=== PATIENT | female | born 1980 | race Caucasian/White ===

== ENCOUNTER 2016-11-08 01:09 | Outpatient (CLI) | payer MEDICAID, OTHER ==
[~2016-11-08] VITALS: Ht 167.6 cm; Wt 88.3 kg
[~2016-11-08 01:09] MED LIST: PRENAT PO
[2016-11-08 02:42] LABS: ADD UMIC YES; UR ASCORBIC ACID NEGATIVE (NEGATIVE); UR BACTERIA FEW /HPF (NONE SEEN); UR BILIRUBIN (Dip) NEGATIVE (NEGATIVE); UR BLOOD (Dip) NEGATIVE (NEGATIVE); UR CLARITY SLIGHTLY CLOUDY (CLEAR); UR COLOR YELLOW (YELLOW); UR GLUCOSE (Dip) NEGATIVE (NEGATIVE); UR KETONES (Dip) 1+ mg/dL (NEGATIVE); UR LEUKOCYTE ESTERASE (Dip) NEGATIVE Leu/ul (NEGATIVE); UR MUCUS MODERATE /HPF (NONE SEEN); UR NITRITE (Dip) NEGATIVE (NEGATIVE); UR RBC 1 /HPF (0-5); UR SPECIFIC GRAVITY (Dip) 1.029 (1.003-1.030); UR SQUAMOUS EPITHELIAL CELL FEW /HPF (FEW); UR TOTAL PROTEIN (Dip) 1+ mg/dl (NEGATIVE); UR UROBILINOGEN (Dip) NEGATIVE (NEGATIVE)
[2016-11-08 02:54] VITALS: BP 130/60; PULSE 87; Ht 167.6 cm; Wt 88.3 kg
--- NOTE | 2016-11-08 03:16 | RADRPT ---
PROCEDURE: ULTRASOUND BIOPHYSICAL PROFILE CLINICAL INDICATION: 36-year-old female with contractions for viability. TECHNIQUE: Multiple sonographic images were obtained in order to perform a biophysical profile The images were reviewed on a PACS workstation. COMPARISON: None. FINDINGS: The cervix is closed with a length of 3.3 cm. There is a single viable intrauterine gestation. Ther e is a vertex presentation. Cardiac activity is present at 121 beats per minute. The placenta is p osterior and low-lying. The results of the biophysical profile are as follows: breathing movement = 2/2 Gross body movement = 2/2 tone = 2/2 Qualitative amniotic fluid volume = 2/2 Amniotic fluid index equals 11.1 cm. This yields a biophysical profile score of 8/8. IMPRESSION: 1. Biophysical profile score is 8/8. 2. Posterior low-lying placenta. 3. The cervix has a length of 3.3 cm. .Sridhar Menchaca MD, MD Date Time Electronically viewed and signed by .Sridhar Menchaca MD, on 11/08/2016 03:16 .Carlos/
[2016-11-08] MEDS ORDERED: NIFEdipine 10 MG CAP PO STA (03:55)
--- NOTE | 2016-11-08 05:53 | PN ---
Triage Information Date/Time November 08, 2016 Weeks of Gestation 28w 4d : 7 Para: 4 Diabetes: none Additional information C/O pelvic pressure x 4 days which increased a lot today. No bleeding or leaking. No recent intercourse. PMHx: none. POBHx: x 4. PSHx: none. NKDA. Objective Vital Signs Date Time Temp Pulse Resp B/P Pulse Ox O2 Delivery O2 Flow Rate FiO2 11/08/16 02:54 98.0 87 130/60 Heart Rate: 120's Heart Rate Comments Accels to 150 bpm. No decels. Contractions: None (No contractions were ever seen but oral hydration didn't seem to make a difference whereby one dose of Procardia made the pain go away completely.) Exam CX: thick/FT/-1 Results/Medications Results 24 hrs Laboratory Tests Test 11/08/16 02:00 Urine Color YELLOW Urine Clarity SLIGHTLY CLOUDY A Urine pH 6.0 Urine Specific [place] 1.029 Urine Ketones 1+ H Urine Nitrite NEGATIVE Urine Bilirubin NEGATIVE Urine Urobilinogen NEGATIVE Urine Leukocyte Esterase NEGATIVE Urine Microscopic RBC 1 Urine Microscopic WBC 2 Urine Squamous Epithelial Cells FEW Urine Bacteria FEW A Urine Mucus MODERATE Urine Hemoglobin NEGATIVE Urine Glucose NEGATIVE Urine Total Protein 1+ H Assessment/Plan A: IUP at 28w 4d. False labor. P: D/C home. PTL precautions reviewed and pt encouraged to rest, stay cool and hydrate well. FELIPA QUINONES MD Nov 08, 2016 05:53
--- NOTE | 2016-11-08 06:01 | TRIAGE ---
OB Triage Datetime Report Generated by CPN: 11/08/2016 06:00 Datetime: 11/08/2016 05:37 Stage of : OB Triage Labor Evaluation Frequency: 0 Monitor Mode: External Resting Tone Maili: Relaxed Heart Rate FHR Baseline Rate: 120 Monitor Mode: External US FHR Baseline Changes: No Baseline Change Variability: Moderate 6-25 bpm Accelerations: 15X15 Decelerations: None Category: Category I Datetime: 11/08/2016 05:12 Stage of : OB Triage Datetime: 11/08/2016 05:00 Stage of : OB Triage Labor Evaluation Frequency: 0 Monitor Mode: External Resting Tone Maili: Relaxed Contraction Comments: Pt denies feeling any ucs, cramping. Abdomen remains soft to palpation. Heart Rate FHR Baseline Rate: 120 Monitor Mode: External US FHR Baseline Changes: No Baseline Change Variability: Moderate 6-25 bpm Accelerations: 15X15 Decelerations: None Category: Category I Datetime: 11/08/2016 04:00 Stage of : OB Triage Labor Evaluation Frequency: x2 Monitor Mode: External Duration (sec)2399: 40 Quality: Mild Resting Tone Maili: Relaxed Heart Rate FHR Baseline Rate: 120 Monitor Mode: External US FHR Baseline Changes: No Baseline Change Variability: Moderate 6-25 bpm Accelerations: 15X15 Decelerations: None Category: Category I Pain Assessment Pain Scale: 2 Pain Presence: Intermittent Pain Type: Cramping Pain Location: Abdomen Pain Relief Measures: Comfort Measures Datetime: 11/08/2016 03:57 Stage of : OB Triage Datetime: 11/08/2016 03:00 Labor Evaluation Frequency: 0 Monitor Mode: External Resting Tone Maili: Relaxed Heart Rate FHR Baseline Rate: 115 Variability: Moderate 6-25 bpm Accelerations: 15X15 Decelerations: None Datetime: 11/08/2016 02:58 Monitor Mode: Palpation Resting Tone Maili: Relaxed Datetime: 11/08/2016 02:00 Labor Evaluation Frequency: NONE Monitor Mode: External Pattern: Normal: <= 5 Contractions in 10 Minutes Contraction Comments: NO UC'S SEEN OR PREVIOUSLY PALPATED, ONLY SPIKES ON TOCO FROM PATIENT JOSE ROBERTOI NG DOWN Heart Rate FHR Baseline Rate: 125 Monitor Mode: External US FHR Baseline Changes: No Baseline Change Variability: Moderate 6-25 bpm Accelerations: 10X10 Datetime: 11/08/2016 01:21 EGA: 28.4 Datetime: 11/08/2016 01:19 Vaginal Exam Dilatation (cms): 0.5 Effacement (%): 30 Station: -1 Exam By: [email or web address] rn Vaginal Bleeding: None Cervix, Consistency: Firm Cervix, Position: Posterior Datetime: 11/08/2016 01:16 Stage of : OB Triage Datetime: 11/08/2016 01:15 Monitor Mode: Palpation Resting Tone Maili: Relaxed Contraction Comments: pt. is pushing, states there is pressure present Datetime: 11/08/2016 01:03 Assessment Type: Triage Time of Arrival: 11/08/2016 01:03 Arrived By: Wheelchair Arrived From: Home Chief Complaint: PRESSURE [id number] Movement: Present Contractions: Denies/Absent Rupture of Membranes: Denies Vaginal Bleeding: None Vaginal Discharge: Denies Recent Sexual Intercouse: Denies Abdominal Trauma: Not Applicable Patient Complaints: Other Time Provider Notified: 11/08/2016 01:15 Provider Notified: REICHE Initial Plan: EFM, SVE, CALL OB, UA, CL, BPP Maternal Assessment Level of Consciousness: Fully Conscious Headache: Denies Blurred Vision: No Respiratory Effort: Unlabored; Regular Rhythm; Equal Expansion Breath Sounds, Left: Clear and Equal Breath Sounds, Right: Clear and Equal Nausea/Vomiting: Denies RUQ Epigastric Pain: Denies Lower Extremities Edema: None Degree: None Upper Extremities Edema: None Degree: None Facial Edema: None Fall Risk Assessment History of Falling: (0) No Secondary Diagnosis: (0) No Ambulatory Aid: (0) Bedrest/Nurse Assist IV Therapy: (0) No Gait: (0) Normal/Bedrest/Immobile Mental Status: (0) Oriented to Own Ability Fall Score: 0 Fall Risk Score Definition: No Risk: No action required
== END 2016-11-08 05:50 | disposition home or self-care (01) ==
LOC: OBT 01:09 → L-D 01:10 → OBT 05:50
PROVIDERS: ATTEND Obstetrics & Gynecology
DX: O47.02 False labor before 37 completed weeks of gestation, second trimester (principal); O09.522 Supervision of elderly multigravida, second trimester; Z3A.28 28 weeks gestation of pregnancy
CPT/HCPCS: 76817; 76818; 81001; Z7500; Z7610; G0463

== ENCOUNTER 2017-01-27 06:55 | Inpatient (IN) | payer OTHER ==
[~2017-01-27] VITALS: Ht 167.6 cm; Wt 90.3 kg
[2017-01-27 11:58] VITALS: Ht 167.6 cm; Wt 90.3 kg
[2017-01-27 11:59] VITALS: BP 126/64; PULSE 73; RESP 18
[2017-01-27] MEDS ORDERED: METHYLERGONOVINE 0.2 MG INJ IM PRN ×2 (12:00→22:00)
[2017-01-27] MEDS ORDERED: OXYTOCIN 30 UNITS/LR 500 ML IV SCH ×3 (12:00→16:30)
[2017-01-27] MEDS ORDERED: CARBOPROST 250 MCG INJ IM PRN ×2 (12:00→22:00)
[2017-01-27] MEDS ORDERED: BUTORPHANOL 2 MG INJ IV PRN (12:00)
[2017-01-27] MEDS ORDERED: LACTATED RINGER'S 1,000 ML IV PRN (12:00)
[2017-01-27] MEDS ORDERED: OXYTOCIN 30 UNITS/LR 500 ML IV PRN ×2 (12:00→22:00)
[2017-01-27] MEDS ORDERED: LIDOCAINE 1% (MPF) 30 ML INJ INJ PRN (12:00)
[2017-01-27] MEDS ORDERED: MISOPROSTOL 200 MCG TAB PR PRN ×2 (12:00→22:00)
[2017-01-27] MEDS ORDERED: IBUPROFEN 600 MG TAB PO PRN (12:00)
[2017-01-27] MEDS ORDERED: AMPICILLIN 2 GM/NS (PMX) 100 ML IV ONE (12:00)
[2017-01-27 12:07] LABS: BASOPHILS % 0.5 % (0.0-2.0); EOSINOPHILS # 0.2 10^3/ul (0.0-0.5); EOSINOPHILS % 3.3 % (0.0-7.0); HEMATOCRIT 36.7 % (37.0-47.0); HEMOGLOBIN 12.7 g/dl (12.0-16.0); LYMPHOCYTES # 1.8 10^3/ul (0.8-2.9); LYMPHOCYTES % 24.1 % (15.0-51.0); MEAN CORPUSCULAR HEMOGLOBIN 30.2 pg (29.0-33.0); MEAN CORPUSCULAR HGB CONC 34.6 g/dl (32.0-37.0); MEAN CORPUSCULAR VOLUME 87.2 fl (82.0-101.0); MEAN PLATELET VOLUME 11.7 fl (7.4-10.4); MONOCYTE # 0.6 10^3/ul (0.3-0.9); MONOCYTES % 7.6 % (0.0-11.0); NEUTROPHIL # 4.7 10^3/ul (1.6-7.5); NEUTROPHILS % 63.5 % (39.0-77.0); PLATELET COUNT 141 10^3/UL (140-415); RED BLOOD COUNT 4.21 10^6/ul (4.20-5.40); RED CELL DISTRIBUTION WIDTH 13.5 % (11.5-14.5); WHITE BLOOD COUNT 7.3 10^3/ul (4.8-10.8)
[2017-01-27 12:10] LABS: INR 0.97; PROTIME 12.9 Sec (12.2-14.2)
--- NOTE | 2017-01-27 13:07 | RADRPT ---
PROCEDURE: US OB. CLINICAL INDICATION: The patient in labor. Uncertain size and dates. TECHNIQUE: Multiple sonographic images of the uterus were obtained. The images were revi ewed on a PACS workstation. COMPARISON: No prior studies are available for comparison. FINDINGS: There is a single live intrauterine gestation. heart rate is 144 beats per minute. Measurements were made in order to determine age. The results are as follows: BPD = 8.86 cm. HC = 32.17 cm. AC = 36.31 cm. FL = 7.23 cm. Estimated weight is 3514 +/- 547 grams. LMP growth percentile is 41 %. Menstrual age by ultrasound dates is 37 weeks 3 days. The estimated date of delivery is 02/14/2017. Position is cephalic and placenta is posterior grade II. There is no evidence for an abruption or pl acenta previa. IMPRESSION: 1. Single live intrauterine gestation of 37 weeks 3 days menstrual age by ultrasound dates. 2. The estimated date of delivery is 02/14/2017. RPTAT: QQ .Felipe Caal MD, Date Time Electronically viewed and signed by .Felipe Caal MD, on 01/27/2017 13:06 .R/
[2017-01-27] MEDS ORDERED: AMPICILLIN 1 GM/NS (PMX) 50 ML IV SCH (16:00)
[2017-01-27] MEDS: LACTATED RINGER'S 1,000 ML IV SCH ×2 (16:55→18:55)
[2017-01-27 17:32] LABS: BARBITURATES Negative (NEGATIVE); BENZODIAZEPINES Negative (NEGATIVE); CANNABINOIDS Negative (NEGATIVE); COCAINE Negative (NEGATIVE)
[2017-01-27 17:33] LABS: OPIATES Negative (NEGATIVE)
--- NOTE | 2017-01-27 21:04 | PREOPHP ---
DATE OF ADMISSION: 01/27/2017 HISTORY OF PRESENT ILLNESS: Ms. Donna Huitron is a 36-year- old 7, para 4, EDC of 01/27/2017 intrauterine at 40 weeks gestational age, admitted today for labor augmentation. At the time of admission, she was 3 cm dilated, 70 percent effaced, -2 station. She is currently lying in supine position complaining of regular contractions. No vaginal bleeding or discharge. She is currently 6-7 cm, 80 percent effaced, -2 station. AROM, clear. care took place at [facility]. PAST MEDICAL HISTORY: None. MEDICATIONS: vitamins. PAST SURGICAL HISTORY: None. OB HISTORY: Times 4 for vaginal deliveries, x2 missed. 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 Denies any sexually transmitted disease. Sexually active with 1 partner. SOCIAL HISTORY: Denies any smoking, drugs, or alcohol. FAMILY HISTORY: None. REVIEW OF SYSTEMS: All within normal except history of present illness. PHYSICAL EXAMINATION: HEENT: Within normal. CARDIAC: S1, S2, regular rhythm. ABDOMEN: Gravid and nontender. Negative CVA bilateral. EXTREMITIES: Negative edema. No calf tenderness. VAGINAL EXAM: 6-7 cm dilated, 70 percent effaced, -2 station. AROM clear. heart tracing category 1. [place], irregular contractions. ASSESSMENT: A 36-year-old, 7, para 4, anterior at term and labor. Currently on Pitocin for augmentation. Plan is expectant vaginal delivery. GBS prophylaxis given. Dictated By: Elliott Matias MD /ailyn/hilda /Document#: [id number]
[2017-01-27] MEDS: LACTATED RINGER'S 1,000 ML IV* SCH (21:32)
--- NOTE | 2017-01-27 21:32 | LDN ---
Date/Time of Note Date/Time of Note DATE: 01/27/17 TIME: 21:29 Delivery Summary Normal spontaneous vaginal delivery Weeks of Gestation 40 weeks Placenta Delivered: Spontaneously Meconium: none Episiotomy: No Laceration repair: No laceration Anesthesia type: None Estimated blood loss: 150 Sponge & Needle done & correct: Yes All needle counts correct: Yes Any foreign bodies felt in the: No Problems: Infant Delivery Information Sex Infant Sex: female Apgars 1 Minute: 8 5 Minute: 9 Suctioning Nose & mouth suctioned at tiara: No Delee suction performed: No Umbilical Cord Umbilical cord with: 3 Vessels Cord presentations: nuchal cord Nuchal cord present X: 1 Cord Blood was obtained: Yes RANDALL MANN MD Jan 27, 2017 21:31
[2017-01-27] MEDS ORDERED: BENZOCAINE 20% 56 ML SPRAY TOP PRN (22:00)
[2017-01-27] MEDS ORDERED: SENNA/DOCUSATE NA (8.6MG/50MG) TAB PO PRN (22:00)
[2017-01-27] MEDS ORDERED: LANOLIN 7 GM TUBE TOP PRN (22:00)
[2017-01-27] MEDS ORDERED: WITCH HAZEL/GLYCERIN PAD PR PRN (22:00)
[2017-01-27] MEDS ORDERED: OXYCODONE/ASPIRIN (4.88/325) TAB PO PRN (22:00)
[2017-01-27] MEDS ORDERED: ONDANSETRON 4 MG INJ IV PRN (22:00)
[2017-01-27] MEDS ORDERED: DIBUCAINE 1% 30 GM OINT PR PRN (22:00)
[2017-01-27 23:30] VITALS: BP 125/66; PULSE 63; RESP 19
[2017-01-27] MEDS: IBUPROFEN 600 MG TAB PO SCH (23:41)
[2017-01-27] MEDS: OXYCODONE/ASPIRIN (4.88/325) TAB PO PRN (23:51)
[2017-01-28] MEDS: LACTATED RINGER'S 1,000 ML IV* SCH ×3 (03:37→21:32)
[2017-01-28 04:56] VITALS: BP 107/61; PULSE 76; RESP 18
[2017-01-28] MEDS: IBUPROFEN 600 MG TAB PO SCH ×3 (05:58→17:32)
[2017-01-28 07:40] VITALS: BP 120/61; PULSE 64; RESP 18
[2017-01-28] MEDS: SENNA/DOCUSATE NA (8.6MG/50MG) TAB PO SCH ×2 (10:06→21:44)
[2017-01-28 10:07] LABS: BASOPHILS % 0.3 % (0.0-2.0); EOSINOPHILS # 0.2 10^3/ul (0.0-0.5); EOSINOPHILS % 1.7 % (0.0-7.0); HEMOGLOBIN 10.8 g/dl (12.0-16.0); LYMPHOCYTES # 2.1 10^3/ul (0.8-2.9); LYMPHOCYTES % 22.3 % (15.0-51.0); MEAN CORPUSCULAR HEMOGLOBIN 28.8 pg (29.0-33.0); MEAN CORPUSCULAR HGB CONC 32.7 g/dl (32.0-37.0); MONOCYTE # 0.5 10^3/ul (0.3-0.9); MONOCYTES % 5.7 % (0.0-11.0); NEUTROPHIL # 6.6 10^3/ul (1.6-7.5); NEUTROPHILS % 69.4 % (39.0-77.0); PLATELET COUNT 131 10^3/UL (140-415); RED BLOOD COUNT 3.75 10^6/ul (4.20-5.40); RED CELL DISTRIBUTION WIDTH 13.6 % (11.5-14.5); WHITE BLOOD COUNT 9.6 10^3/ul (4.8-10.8)
[2017-01-28 10:14] LABS: POSITIVE DIFF @See below
[2017-01-28] MEDS: OXYCODONE/ASPIRIN (4.88/325) TAB PO PRN ×3 (12:08→21:45)
--- NOTE | 2017-01-28 13:39 | QN ---
Documentation Comment Patient seen and evaluated Awake alert oriented 3 positive ambulation tired diet positive flatulence positive bowel movement Vital signs stable Abdomen soft nontender uterine fundus below umbilicus firm Extremity negative edema no calf tenderness Assessment status post vaginal delivery day 1 stable afebrile Plan discharge home tomorrow follow-up in the office in 3 weeks for care RANDALL MANN MD Jan 28, 2017 13:39
--- NOTE | 2017-01-28 13:40 | DS ---
Date/Time of Note Date/Time of Note DATE: 01/28/17 TIME: 13:40 Obstetrical Discharge Record Final Diagnosis Final Diagnosis: Term delivered Vaginal Delivery Obstetrical Delivery: Spontaneous Condition on Discharge Physical Assessment Voiding: Yes Bowel Movement: Yes Breast: Soft, non-tender, Filling Fundus: Firm Calf Tenderness: No Patient Condition: Fair RANDALL MANN MD Jan 28, 2017 13:40
--- NOTE | 2017-01-28 13:41 | PD.PPDC ---
RN GASTROENTEROLOGY Discharge Instruction Condition Patient Condition: Fair Diet Diet: Resume Regular Diet Activity/Restrictions Activity: Normal Activity May Shower Restrictions: No Exercising No Lifting No Driving No Sexual Activity Nothing in the Vagina No [place] No Tampons, douche Follow-up Follow-up with Physician: 3, Week/Weeks Return to clinic for MANAGER FLIGHT Instructions: Fever greater than 101 Chills Worsening abdominal pain Excessive Vaginal Bleeding More than 2 pads per hour Unable to tolerate diet OB Instructions: Breast Tenderness Depression Blurried Vision Headache RANDALL MANN MD Jan 28, 2017 13:41
[2017-01-28 16:08] VITALS: BP 121/60; PULSE 86; RESP 19
[2017-01-28 20:00] VITALS: BP 109/59; PULSE 79; RESP 18
[2017-01-28] MEDS ORDERED: BISACODYL 10 MG SUPP PR ONE (23:00)
[2017-01-29] MEDS: OXYCODONE/ASPIRIN (4.88/325) TAB PO PRN ×2 (02:16→09:52)
[2017-01-29 04:30] VITALS: BP 110/55; PULSE 64; RESP 19
[2017-01-29] MEDS: LACTATED RINGER'S 1,000 ML IV* SCH (05:32)
[2017-01-29] MEDS: IBUPROFEN 600 MG TAB PO SCH ×2 (06:00)
[2017-01-29 08:00] VITALS: BP 101/71; RESP 18
[2017-01-29] MEDS: SENNA/DOCUSATE NA (8.6MG/50MG) TAB PO SCH (09:00)
== END 2017-01-29 13:57 | disposition home or self-care (01) | DRG 775 ==
LOC: EDSTATUS 10:57 → L-D 11:12 → PP1 23:28
PROVIDERS: ADMIT Obstetrics & Gynecology; ATTEND Obstetrics & Gynecology
PROC: 10E0XZZ Delivery of Products of Conception, External Approach (ICD-10-PCS; principal; 2017-01-27)
DX: O80 Encounter for full-term uncomplicated delivery (principal); Z37.0 Single live birth; Z3A.40 40 weeks gestation of pregnancy
CPT/HCPCS: 76815; 80307; 85025; 85610; 85730; 86592; 86900; 86901; 87340; J0290; J0595; J2590; J7120

== ENCOUNTER 2017-06-28 11:18 | Day surgery (SDC) | END 2017-06-28 16:32 | disposition home or self-care (01) ==